=== PATIENT | female | born 1980 | race Hispanic/Latino ===

== ENCOUNTER 2018-09-25 21:03 | Emergency (ER) | payer OTHER ==
[2018-09-25 22:59] VITALS: BP 148/91; PULSE 69; RESP 16; TEMP 98.3; O2SAT 99
--- NOTE | 2018-09-25 23:52 | ED PDOC ---
HPI: General Adult Chief Complaint (Nursing): ENT Problem Chief Complaint (Provider): foreign object left ear History Per: Patient History/Exam Limitations: no limitations Onset/Duration Of Symptoms: Hrs Additional Complaint(s): 37 y/o female presents for evaluation of foreign object in left ear x 4 hours. Patient is hard of hearing; states she wears hearing aids due to scar tissue and "floppy" ear drums, and tonight while taking out hearing aids the rubber part got stuck in left ear. Denies pain, drainage from ear. Past Medical History Reviewed: Historical Data, Nursing Documentation, Vital Signs Vital Signs: Last Vital Signs Temp 98.3 F 09/25/18 22:56 Pulse 69 09/25/18 22:56 Resp 16 09/25/18 22:56 BP 148/91 H 09/25/18 22:56 Pulse Ox 99 09/25/18 22:56 - Medical History PMH: No Chronic Diseases - Surgical History Other surgeries: tymp tubes - Family History Family History: States: No Known Family Hx - Living Arrangements Living Arrangements: With Family - Allergies Allergies/Adverse Reactions: Allergies Allergy/AdvReac Type Severity Reaction Status Date / Time No Known Allergies Allergy Verified 09/25/18 22:56 Review of Systems ROS Statement: Except As Marked, All Systems Reviewed And Found Negative ENT: Positive for: Ear Pain (FB left ear) Physical Exam - Reviewed Nursing Documentation Reviewed: Yes Vital Signs Reviewed: Yes - Physical Exam Appears: Positive for: Well, Non-toxic, No Acute Distress ENT: Positive for: TM Is/Are (Right TM clear. Left TM obstructed by silicone foreign body in EAC). Negative for: Pharyngeal Erythema, Tonsillar Exudate, Tonsillar Swelling Neurologic/Psych: Positive for: Alert, Oriented (x3) - ECG O2 Sat by Pulse Oximetry: 99 - Progress ED Course And Treament: Foreign body removed using alligator forceps TM now visible, clear Patient educated on findings, discharged with instructions to follow up ENT. Return precautions given Disposition - Clinical Impression Clinical Impression: Foreign body in left ear - Patient ED Disposition Is Patient to be Admitted: No Counseled Patient/Family Regarding: Diagnosis, Need For Followup - Disposition Referrals: Ranjan Brown MD [Staff Provider] - Disposition: Routine/Home Disposition Time: 23:54 Condition: IMPROVED Instructions: Removing Objects Stuck in the Ear Forms: [employer] (N[place]ian)
== END 2018-09-25 23:55 | disposition home or self-care (01) ==
LOC: H.ER 21:03
DX: H92.10 Otorrhea, unspecified ear (principal)